=== PATIENT | female | born 2000 | race Caucasian/White ===

== ENCOUNTER 2020-09-18 14:31 | Emergency (ER) | payer OTHER ==
[~2020-09-18] VITALS: Ht 167.6 cm; Wt 78.1 kg
[2020-09-18 14:40] VITALS: BP 129/87
--- NOTE | 2020-09-18 14:50 | NUR ---
PT C/O RIGHT SHOULDER, WRIST, AND RIB PAIN X4 DAYS. PT REPORTS FALLING 4 DAYS AGO ON HER RIGHT SIDE.
--- NOTE | 2020-09-18 16:51 | NUR ---
Patient/Caregiver given discharge instructions and they have confirmed that they understand the instructions. Patient ambulatory with steady gait.
== END 2020-09-18 16:52 | disposition home or self-care (01) ==
LOC: ED 16:30
DX: S40.011A Contusion of right shoulder, initial encounter (principal); S80.01XA Contusion of right knee, initial encounter; S09.90XA Unspecified injury of head, initial encounter; F10.129 Alcohol abuse with intoxication, unspecified; Y90.0 Blood alcohol level of less than 20 mg/100 ml; W01.0XXA Fall on same level from slipping, tripping and stumbling without subsequent striking against object, initial encounter; Y93.89 Activity, other specified; Y92.410 Unspecified street and highway as the place of occurrence of the external cause; Y99.8 Other external cause status
CPT/HCPCS: 70450; 99284